=== PATIENT | female | born 1955 | race Caucasian/White ===

== ENCOUNTER 2025-07-30 15:21 | Emergency (ER) | payer MEDICAID, MEDICARE ==
[~2025-07-30] VITALS: Ht 152.4 cm; Wt 64.0 kg
--- NOTE | 2025-07-30 15:58 | ELECTROCARDIOGRAPH REPORT ---
[facility] Test Date: 2025-07-30 Test Time: 15:27:39 Pat Name: DAMIAN BOWLING Department: EMERGENCY ROOM [id number] Room: Gender: F Collections Clerk: BLAIR : 1955 Requested By: ROBIN OCHOA Order Number: [id number] Reading MD: Dr. 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 Esau Weinberg Please click the below link to view image of tracing.
[2025-07-30 16:01] LABS: MEAN PLATELET VOLUME 7.4 FL (7.4-10.4); RED CELL DISTRIBUTION WIDTH 13.2 % (11.5-14.5)
[2025-07-30 16:24] LABS: CREATININE 2.13 MG/DL (0.40-0.90); TOTAL CARBON DIOXIDE 36.3 MMOL/L (24-32); eCRCL 17 ML/MIN; eGFR 23 ML/MIN
--- NOTE | 2025-07-30 16:25 | Physician Documentation ---
History of Present Illness ~ Chief Complaint: Vomiting w/diarrhea Stated Complaint: GEN ILLNESS Time Seen by MD: 15:50 Primary Medical Doctor: [facility] DR. ZAMUDIO Mode of Arrival: EMS HPI 70-year-old female presents to the ED after having a full month of illness which has included nausea vomiting and diarrhea. Says she has lost over 10 lb and now has reported brain fog weakness and fatigue along with dizziness. She states she has not eaten for a month. denies any history of hernia. Day of Onset: Jul 30, 2025 Medication Reconciliation Allergies: Coded Allergies: codeine (Unverified Allergy, Unknown, 07/30/25) Scheduled Omeprazole (Prilosec), 1 CAP PO DAILY Scheduled PRN ONDANSETRON ODT 4mg tablet (Ondansetron Odt), 1 TAB PO Q6H PRN PRN for nausea/vomiting Physical Exam Vital Signs: Temperature: 97.7, Source: Oral, Heart Rate: 117, Respiratory Rate: 16, BP: 111/62, Pulse Oximetry: 94, Weight: 64.000 Oxygen Flow Rate: 0 Physical Exam General: Alert, no apparent distress. Respiratory: Lungs clear, no respiratory distress. Cardiovascular: Regular rate and rhythm, no murmurs. Gastrointestinal: Soft, nontender, nondistended. Bowels sounds present. Soft and reducible umbilical hernia Neurologic: Oriented x4. Psychiatric: Normal mood and affect. Skin: Normal color, warm and dry. No edema, no ecchymosis. Progress Results/Orders Results/Orders Orders - ROBIN OCHOA RUG REPAIRER Ct Abdomen Pelvis (07/30/25 17:00) Completed Orders - ROBIN OCHOA RUG REPAIRER Electrocardiogram (07/30/25 15:27) Normal Saline 1000ml (0.9% Sodium Chlori (07/30/25 16:25) Ct Abdomen Pelvis (07/30/25 17:00) Ondansetron Inj. (Zofran 4mg/2ml Vial) (07/30/25 17:00) Medications Received in ER Medications (Trade) Dose Ordered Sig/Lu Route PRN Reason Start Time Stop Time Status Last Admin Dose Admin (0.9% sodium chloride (NS) 1000ml IV soln) 2,000 ml ONCE ONCE IVB 07/30/25 16:25 07/30/25 16:26 DC 07/30/25 16:54 2,000 ML (Zofran 4mg/2ml vial) 4 mg ONCE ONCE IV 07/30/25 17:00 07/30/25 17:02 DC 07/30/25 17:30 4 MG Vital Signs 07/30/25 07/30/25 07/30/25 15:24 15:47 16:56 Temp 97.7 Pulse 117 92 Resp 18 16 B/P (MAP) 111/62 114/55 (74) Pulse Ox 94 93 O2 Flow Rate 0 0 Laboratory Tests Test 07/30/25 15:52 White Blood Count 9.0 Red Blood Count 4.21 Hemoglobin 12.9 Hematocrit 38.2 Mean Corpuscular Volume 90.7 Mean Corpuscular Hemoglobin 30.6 Mean Corpuscular Hemoglobin Concent 33.7 Red Cell Distribution Width 13.2 Platelet Count 310 Mean Platelet Volume 7.4 Neutrophils (%) (Auto) 74.0 Lymphocytes (%) (Auto) 11.8 L Monocytes (%) (Auto) 10.3 Eosinophils (%) (Auto) 2.9 Basophils (%) (Auto) 1.0 Neutrophils # (Auto) 6.7 Lymphocytes # (Auto) 1.1 Monocytes # (Auto) 0.9 Eosinophils # (Auto) 0.3 Basophils # (Auto) 0.1 CBC Comment Sodium Level 133 L Potassium Level 3.1 L Chloride Level 88 L Carbon Dioxide Level 36.3 H Anion Gap 9 Blood Urea Nitrogen 45 H Creatinine 2.13 H Estimated GFR/1.73 m2 23 BUN/Creatinine Ratio 21.1 H Glucose Level 129 H Calcium Level 8.4 L Total Bilirubin 0.5 Aspartate Amino Transf (AST/SGOT) 19 Alanine Aminotransferase (ALT/SGPT) 9 L Alkaline Phosphatase 89 Total Protein 7.2 Albumin 2.8 L Globulin 4.4 H Albumin/Globulin Ratio 0.6 L Lipase 58 Chemistry Comments Medical Decision Making Findings This patient's CT showed signs of inflammatory bowel disease and a large periumbilical hernia. Hernia is soft and reducible. I suspect that this patient's symptoms are related to the inflammatory bowel disease rather than the hernia.. States the hernia that I discovered during the physical exam happened when she gained a lot of weight I did offer hospitalization however the patient declined as she felt better. sHe requested to be discharged in she has a ride coming for her. Advised her to return if she has any worsening concern Diff Dx GI Bleed:Consideration: Unlikely: AE fistula, Angiodysplasia, Bleeding diathesis, Blood loss anemia, Carcinoma, Diverticulosis, Diverticulitis, Esophageal varicies, Esophagitis, Gastritis, Gastroenteritis, Inflammatory BD, Nichole-Dixon syndrome, Meckel's diverticulum, PUD, Other Diff Dx Pain:Considerations: Unlikely: AAA, -Complete, - Incomplete, -Inevitable, -Missed, -Threatened, Abruptio placentae, Angina/SD, Aortic dissection, Appendicitis, Bowel obstruction, Cholangitis, Cholecystitis, Cholelithasis, Constipation, Diverticular disease, Dysmenorrhea, Ectopic , Esophageal rupture, Esophagitis, Gastritis/PUD, Gastroenteritis, GI hemorrhage, Hernia, Hepatitis, Inflammatory BD, Ischemic bowel, Mass, Ovarian cyst/torsion, Pancreatitis, PID, Porphyria, Trauma, intraabdominal, Urinary obstruction, Urinary tract infection, Urolithiasis, Other Diff Dx N/V/D:Considerations: Include: Appendicitis, Bowel obstruction, Dehydration, DKA, Diarrhea - bacterial, Diarrhea - parasitic, Diarrhea - viral, Diverticulitis, Diverticulosis, Drug toxicity, Electrolyte imbalance, Food poisoning, Gastroenteritis, GE reflux, GI bleed, Hepatitis, Hernia, Hypovolemia, Hypotension, Inflammatory BD, Impaction, Malnutrition, Pancreatitis, , PUD, Renal failure, Urolithiasis, Urinary obstruction, UTI, Other Diff Dx Rectal:Considerations: Unlikely: Fissure, Fistula, Foreign body, Impaction, Perirectal abscess, Rectal prolapse, Subcutaneous abscess, Thrombosed hemorrhoid, Ulcer, UTI, Other Departure Disposition: 01 HOME / SELF CARE / HOMELESS Impression: Primary Impression: Hypokalemia Additional Impressions: Paraumbilical hernia KARTIK (acute kidney injury) Condition: Stable Discharge Instructions: Gastritis, Adult, [id number], Umbilical Hernia, Adult Referrals: NO PRIMARY CARE PROVIDER (PCP) Prescriptions ONDANSETRON ODT 4mg tablet (ONDANSETRON ODT) 4 Mg Tab.rapdis 1 TAB PO Q6H PRN PRN for nausea/vomiting for 4 Days, #16 TAB 0 Refills Prov: ROBIN OCHOA RUG REPAIRER 07/30/25 Omeprazole (Prilosec) 40 Mg Capsule 1 CAP PO DAILY for 30 Days, #30 CAP Prov: ROBIN OCHOA NP 07/30/25 Education Educated: Patient Educated regarding: diagnosis Signature Scribe Signature: f Attestation: Scribed for Robin Ochoa Evaluation Specialist by Robin Ochoa - BRUNA . 07/30/25 17:47 ROBIN OCHOA NP Jul 30, 2025 16:25
[2025-07-30] MEDS: normal saline 1000ML IV soln IVB ONE (16:54)
[2025-07-30] MEDS: ondansetron/PF 4mg/2ml inj IV ONE (17:30)
--- NOTE | 2025-07-30 17:39 | RADIOLOGY REPORT ---
Indication: abd pain Technique: CT axial images of the abdomen and pelvis are obtained without contrast. Coronal and sagittal reformats were obtained. Radiation Dose Information: CTDI volume is 17 mGy. Dose-length product is 918 mGy*cm Comparison: None FINDINGS: There is limited interpretation of the abdomen and pelvis without administration of intravenous contrast. Lung bases demonstrate no pleural effusion. Adrenal glands, spleen, pancreas unremarkable in shape. Cholelithiasis. Dilatation of the common bile duct to 10 mm. Liver unremarkable in shape. No hydronephrosis/ nephrolithiasis. Stomach is relatively nondistended. Small bowel loops normal in caliber. Moderate volume stool in the colon. Normal appendix. There is mild bowel wall thickening of the ascending and proximal transverse colon. Abdominal aortic atherosclerotic disease. Bladder partially distended. No free pelvic fluid. No inguinal lymphadenopathy. Paraumbilical hernia containing fat measuring 6.3 x 5.7 cm. [id number] bilateral sacroiliac degenerative joint disease. Moderate to advanced lumbar degenerative disc disease most pronounced at L4-5 and L5-S1. IMPRESSION: Limited evaluation without contrast. Mild bowel wall thickening of the ascending and transverse colon, may represent colitis, inflammatory bowel disease. Atherosclerotic disease. Paraumbilical hernia containing fat measuring 6.3 cm. Other findings as described.
[2025-07-30] MEDS ORDERED: OMEP40CA21 PO (17:50)
[2025-07-30] MEDS ORDERED: ONDA-243 PO (17:57)
[2025-07-30 18:28] VITALS: BP 104/44; PULSE 98; RESP 16; TEMP 97.7; O2SAT 94
== END 2025-07-30 18:30 | disposition home or self-care (01) ==
LOC: ER 15:21
DX: K42.9 Umbilical hernia without obstruction or gangrene (principal); E87.6 Hypokalemia; N17.9 Acute kidney failure, unspecified; Z88.5 Allergy status to narcotic agent; Z79.899 Other long term (current) drug therapy
CPT/HCPCS: 74176; 80053; 83690; 85025; 93005; 96361; 96374; 99285; J2405; J7030